=== PATIENT | female | born 1960 | race Two or more races ===

== ENCOUNTER 2019-11-16 08:08 | Day surgery (SDC) | payer BC, OTHER ==
[2019-11-15 12:38] VITALS: BMI 35.2
[2019-11-16] MEDS ORDERED: LIDOCAINE HCL 2% (20ML MULTI-DOSE VIAL) ONE (10:44)
--- NOTE | 2019-11-16 11:09 | HP ---
<AnuelTameka - Last Filed: 11/16/19 18:00> CHIEF COMPLAINT: Foot Pain PCP: Dr. Riki Perez HISTORY OF PRESENT ILLNESS: 59 y/o F PMHx OA presents for Left 2nd digit Hammer toe repair. Patient says that she had a mechanical fall on 10/16/2018 after which she began to experience 2nd Left digit pain that limited her ambulation. She describes the pain as 6/10 sharp pain mainly over her toe, that does not radiate, worse with ambulation, improves with OTC PRN NSAID use. Patient denies any preceeding lightheadedness or dizziness. Since the fall, she has tried Physical therapy with minimal relief. She continues to have difficulty with ambulation and her pain remains unchanged prompting her to use 600mg Ibproufen PRN. She has followed with podiatry and is for 2nd digit hammer toe repair today. Patient endorses one previous fall in the past; It was mechanical in nature in 1989. Additionally endorses having had vaginal ablation for menorhaggia associated with menopause; she had local anesthesia. No hx of intubation or general anesthesia use. Patient is able to ambulate up 3 flights of stairs without difficulty; her limitation stems from difficulty with ambulation and has no associated SOB or chest pain. Preop HNP, Labs and EKG done by PCP and present in paperchart. Denies any lightheadedness, dizziness, fevers, chills, chest pain, SOB, nausea, vomiting, diarrhea, constipation, dysuria. Denies any recent travel, medication changes, trauma, or sick contacts. Recent Travel: Denies PAST MEDICAL HISTORY: As per HPI PAST SURGICAL HISTORY: Vaginal Ablation Social History: Smoking: Denies Alcohol: Social Drugs: Denies Occupation: School Counselor Ambulation: Without assistance Residence: House with son Allergies Penicillins Allergy (Intermediate, Verified 11/16/19 09:14) Rash HOME MEDICATIONS: Home Medications Medication Instructions Recorded Calcium Carb, Cit/Magnesium Ox 1 each PO DAILY 11/15/19 [Calmag Thins Tablet] Cholecalciferol (Vitamin D3) 125 mcg PO DAILY 11/15/19 [Vitamin D3] Ibuprofen [Motrin -] 600 mg PO PRN 11/15/19 Iron 45 mg PO WEEKLY 11/15/19 Turmeric Root Extract [Turmeric] 500 mg PO DAILY 11/15/19 REVIEW OF SYSTEMS As per HPI PHYSICAL EXAMINATION Vital Signs - 24 hr 11/16/19 11/16/19 08:57 09:05 Temperature 98.2 F Pulse Rate 61 Respiratory 20 Rate Blood Pressure 120/78 O2 Sat by Pulse 99 99 Oximetry (%) GENERAL: A&Ox3, NAD, able to speak in full sentences HEAD: NCAT EYES: PERRL, EOMI ENT: Oropharynx clear without exudates. Moist mucous membranes. NECK: No JVD LUNGS: Diminished breath sounds at the bases, CTAB, No wheezes, no crackles HEART: RRR, S1 S2 ABDOMEN: Obese, Soft, nontender, not distended, + bowel sounds, no guarding, no rebound MUSCULOSKELETAL: No CVA tenderness. EXTREMITIES: No peripheral edema. 2nd left digit hammer toe NEUROLOGICAL: Cranial nerves II-XII intact. Normal speech. Gross sensation intact throughout. 5/5 muscle strength throughout. PSYCHIATRIC: Cooperative. SKIN: Warm, dry ASSESSMENT/PLAN: 59 y/o F PMHx OA presents for Left 2nd digit Hammer toe repair. #Left 2nd digit Hammer toe repair -After Mechanical Fall; Has tried PT and OTC Meds with minimal relief -PreOp labs/EKG done by PCP -For OR today with Dr. Hahn -PostOp pain control, diet advancement and follow up as per Dr. Hahn #FEN -No standing fluids -Replete Lytes PRN -NPO for OR today #PPx -DVT: SCDs Dispo: For OR Today Visit type - Emergency Visit Emergency Visit: No - New Patient This patient is new to me today: Yes Date on this admission: 11/16/19 - Critical Care Critical Care patient: No ATTENDING PHYSICIAN STATEMENT I saw and evaluated the patient. I reviewed the resident's note and discussed the case with the resident. I agree with the resident's findings and plan as documented. SUBJECTIVE: OBJECTIVE: ASSESSMENT AND PLAN: <Armida Ramos - Last Filed: 11/21/19 07:40> CHIEF COMPLAINT: PCP: HISTORY OF PRESENT ILLNESS: ER course was notable for: (1) (2) (3) Recent Travel: PAST MEDICAL HISTORY: PAST SURGICAL HISTORY: Social History: Smoking: Alcohol: Drugs: Allergies Penicillins Allergy (Intermediate, Verified 11/16/19 09:14) Rash HOME MEDICATIONS: Home Medications Medication Instructions Recorded Calcium Carb, Cit/Magnesium Ox 1 each PO DAILY 11/15/19 [Calmag Thins Tablet] Cholecalciferol (Vitamin D3) 125 mcg PO DAILY 11/15/19 [Vitamin D3] Ibuprofen [Motrin -] 600 mg PO PRN 11/15/19 Iron 45 mg PO WEEKLY 11/15/19 Turmeric Root Extract [Turmeric] 500 mg PO DAILY 11/15/19 REVIEW OF SYSTEMS CONSTITUTIONAL: Absent: fever, chills, diaphoresis, generalized weakness, malaise, loss of appetite, weight change HEENT: Absent: rhinorrhea, nasal congestion, throat pain, throat swelling, difficulty swallowing, mouth swelling, ear pain, eye pain, visual changes CARDIOVASCULAR: Absent: chest pain, syncope, palpitations, irregular heart rate, lightheadedness, peripheral edema RESPIRATORY: Absent: cough, shortness of breath, dyspnea with exertion, orthopnea, wheezing, stridor, hemoptysis GASTROINTESTINAL: Absent: abdominal pain, abdominal distension, nausea, vomiting, diarrhea, constipation, melena, hematochezia GENITOURINARY: Absent: dysuria, frequency, urgency, hesitancy, hematuria, flank pain, genital pain MUSCULOSKELETAL: Absent: myalgia, arthralgia, joint swelling, back pain, neck pain SKIN: Absent: rash, itching, pallor HEMATOLOGIC/IMMUNOLOGIC: Absent: easy bleeding, easy bruising, lymphadenopathy, frequent infections ENDOCRINE: Absent: unexplained weight gain, unexplained weight loss, heat intolerance, cold intolerance NEUROLOGIC: Absent: headache, focal weakness or paresthesias, dizziness, unsteady gait, seizure, mental status changes, bladder or bowel incontinence PSYCHIATRIC: Absent: anxiety, depression, suicidal or homicidal ideation, hallucinations. PHYSICAL EXAMINATION GENERAL: Awake, alert, and fully oriented, in no acute distress. HEAD: Normal with no signs of trauma. EYES: Pupils equal, round and reactive to light, extraocular movements intact, sclera anicteric, conjunctiva clear. No lid lag. EARS, NOSE, THROAT: Ears normal, nares patent, oropharynx clear without exudates. Moist mucous membranes. NECK: Normal range of motion, supple without lymphadenopathy, JVD, or masses. LUNGS: Breath sounds equal, clear to auscultation bilaterally. No wheezes, and no crackles. No accessory muscle use. HEART: Regular rate and rhythm, normal S1 and S2 without murmur, rub or gallop. ABDOMEN: Soft, nontender, not distended, normoactive bowel sounds, no guarding, no rebound, no masses. No hepatomegaly or splenomegaly. MUSCULOSKELETAL: Normal range of motion at all joints. No bony deformities or tenderness. No CVA tenderness. UPPER EXTREMITIES: 2+ pulses, warm, well-perfused. No cyanosis. No clubbing. No peripheral edema. LOWER EXTREMITIES: 2+ pulses, warm, well-perfused. No calf tenderness. No peripheral edema. NEUROLOGICAL: Cranial nerves II-XII intact. Normal speech. Normal gait. PSYCHIATRIC: Cooperative. Good eye contact. Appropriate mood and affect. SKIN: Warm, dry, normal turgor, no rashes or lesions noted, normal capillary refill. ASSESSMENT/PLAN: ATTENDING: PT WAS NOT SEEN BY ME SHE WAS DISCHARGED AFTER OR BY SURGERY TEAM ATTENDING PHYSICIAN STATEMENT I saw and evaluated the patient. I reviewed the resident's note and discussed the case with the resident. I agree with the resident's findings and plan as documented. SUBJECTIVE: OBJECTIVE: ASSESSMENT AND PLAN:
[2019-11-16] MEDS ORDERED: PROPOFOL 20 ML ONE ×2 (11:27)
[2019-11-16] MEDS ORDERED: MIDAZOLAM HCL 2 MG/2 ML SINGLE DOSE VIAL ONE (11:27)
[2019-11-16] MEDS ORDERED: LIDOCAINE HCL/PF 2% SDV 5ML VIAL ONE (11:27)
[2019-11-16] MEDS ORDERED: CLINDAMYCIN 600 MG PREMIX BAG IVPB ONE (11:32)
[2019-11-16] MEDS ORDERED: KETOROLAC TROMETHAMINE 30 MG/1 ML VIAL ONE (12:42)
[2019-11-16] MEDS ORDERED: ONDANSETRON 4 MG/2 ML VIAL ONE (12:48)
[2019-11-16] MEDS ORDERED: DEXAMETHASONE SOD PHOSPHATE 4 MG/1 ML VIAL ONE (12:54)
[2019-11-16] MEDS ORDERED: ONDANSETRON 4 MG/2 ML VIAL IVPUSH PRN (13:09)
[2019-11-16] MEDS ORDERED: oxyCODONE HCL 5 MG TABLET PO PRN (13:09)
[2019-11-16] MEDS ORDERED: LACTATED RINGERS SOLUTION 1,000 ML IV SCH (13:15)
--- NOTE | 2019-11-16 13:15 | OP ---
Operative Note - Note: Operative Date: 11/16/19 Pre-Operative Diagnosis: Hallux valgus and second hammertoe left foot Operation: Moore bunionectomy .062 k-wire fixation. Proximal IPJ Arthroplasty second toe left foot Implants: .062 and .045 k-wire Surgeon: Montez Hahn Network Security Engineer: Gianna Swain Estimated Blood Loss (mls): 5 Operative Report Dictated: Yes
[2019-11-16 15:07] VITALS: TEMP 97.4
[2019-11-16 16:48] VITALS: BP 111/64; PULSE 66
--- NOTE | 2019-11-18 18:06 | PATH ---
Surgical Pathology Report Patient Name: JOSÉ MIGUEL BERNARD [facility]. Rec. #: [id number] /Age/Gender: 1960 (Age: 59) / F Account: [id number] Location: [facility] SURGICAL Taken: 11/16/2019 Received: 11/16/2019 Reported: 11/18/2019 Physicians: Montez Hahn DPM Specimen(s) Received BONE FROM LEFT 1ST AND 2ND TOE Clinical History Left foot bunion and hammertoe Final Diagnosis BONE FROM LEFT FIRST AND SECOND TOES, EXCISION: PORTIONS OF BONE WITH FATTY MARROW SHOWING FOCAL DEGENERATIVE CHANGE. Electronically Signed Luz Hobbs M.D. Gross Description Received in formalin, labeled "bone from left first and second toes" are 5 pieces of bone ranging from 0.7 to 2.2 cm in greatest dimension. The specimen is serially sectioned and submitted in one cassette after decalcification. RAMONITA/11/16/2019 jarek/11/16/2019
== END 2019-11-16 16:50 | disposition home or self-care (01) ==
LOC: JASU-SURG 08:08
PROVIDERS: ATTEND Podiatrist
PROC: 0SQQ0ZZ Repair Left Toe Phalangeal Joint, Open Approach (ICD-10-PCS; 2019-11-16)
PROC: 0QBR0ZZ Excision of Left Toe Phalanx, Open Approach (ICD-10-PCS; principal; 2019-11-16 10:00)
DX: M20.12 Hallux valgus (acquired), left foot (principal); M20.42 Other hammer toe(s) (acquired), left foot; M24.575 Contracture, left foot
CPT/HCPCS: 73630-TC-LT; 88304-TC; 88311-TC; 94760